=== PATIENT | female | born 1955 | race Caucasian/White ===

== ENCOUNTER 2024-02-23 12:55 | Outpatient (CLI) | payer MEDICARE, OTHER, SELFPAY | END 2024-02-23 12:56 | disposition home or self-care (01) | LOC: AMB 03-14 03:56 | PROVIDERS: Visit Provider Family Medicine | DX: R04.0 Epistaxis (principal) | CPT/HCPCS: A0998 ==

== ENCOUNTER 2025-04-30 12:56 | Emergency (ER) | payer OTHER, SELFPAY ==
--- OUTSIDE RECORDS SUMMARY | 2025-04-30 12:59 | XMS_ITS | Patient Health Record ---
Author Organization [facility] Address [address] [place] [address] Care Team Providers Care Instructor Adjunct Surgical Technician Name Role Phone DR ALVIN Primary Care Provider Kofi SalehMagda maynard Unavailable [phone] Allergies Allergen (clinical drug ingredient) Drug/Non Drug Allergy documented on EMR Reaction Allergy Type Onset Date Status Penicillin Unknown Drug Allergy Active Results Component Value Reference Range Notes Urinalysis, Routine Reviewed date:09/28/2024 06:20:20 PM Interpretation: Performing Lab: Notes/Report: Glucose Neg Bilirubin Moderate Ketones 15 Specific [place] 1.030 Occult Blood Trace-Lysed pH 5.5 Protein 100 Urobilinogen,Semi-Qn 1.0 Nitrite, Urine Pos PUSHPA Trace Urine-Color Brown Appearance Slightly Cloudy Urine C&S (CPT 73041) Reviewed date:09/30/2024 06:00:03 PM Interpretation: Performing Lab:TP, [id number], [id number] Renard Luna MD Notes/Report: 0 CULTURE, URINE, ROUTINE CULTURE, URINE, ROUTINE Micro Number: [id number] Test Status: Final Specimen Source: Urine Specimen Quality: Adequate Result: No Growth Reason For Referral No Information Medications Medication SIG (Take, Route, Frequency, Duration) Notes Start Date End Date Status Benzonatate 100 MG 2 capsule Orally Three times a day; Duration: 7 Not-Taking hydrOXYzine HCl 25 MG Oral; Duration: 30 Days Patient did not supply Active Ciprofloxacin HCl 500 MG TAKE 1 TABLET BY MOUTH EVERY 12 HOURS FOR 10 DAYS Oral; Duration: 10 Days Active metroNIDAZOLE 500 MG Oral; Duration: 10 Days Patient did not supply Active Amoxicillin 875 MG 1 tablet Orally every 12 hrs; Duration: 10 days Not-Taking Atorvastatin Calcium 20 MG 1 tablet Orally Once a day Active Sertraline HCl 50 MG 1 tablet Orally Once a day Active Fluticasone Propionate 50 MCG/ACT 1 spray in each nostril Nasally Once a day; Duration: 30 day(s) Not-Taking Problems Problem Type SNOMED Code ICD Code Onset Dates Problem Status W/U Status Risk Notes Problem Overweight (212820238) Overweight (E66.3) Active confirmed Problem Acute tonsillitis (89819743) Acute tonsillitis due to other specified organisms (J03.80) Active confirmed Problem Hyperlipidemia (12393083) Hyperlipidemia (E78.5) Active confirmed Problem Chronic sinusitis (73509040) Sinusitis, unspecified chronicity, unspecified location (J32.9) Active confirmed Problem Diverticulitis (07629305) Diverticulitis (K57.92) Active confirmed Problem 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) Depression with anxiety (F41.8) Active confirmed Problem Obesity (785802112) Obesity with body mass index greater than 30 (E66.9) Active confirmed Problem Ineffective air exchange (Z78.9) Active confirmed Vital Signs Heart Rate 112 /min 09/28/2024 Temperature 98.1 degrees Fahrenheit 09/28/2024 Respiratory Rate 18 /min 09/28/2024 Height-cm 151.13 cm 09/28/2024 Oximetry 95 % 09/28/2024 Blood pressure diastolic 82 mm Hg 09/28/2024 Weight-kg 67.95 kg 09/28/2024 Height 59.5 in 09/28/2024 Blood pressure systolic 122 mm Hg 09/28/2024 Weight 149.8 lbs 09/28/2024 BMI 29.75 kg/m2 09/28/2024 Encounters Encounter Location Date Provider Diagnosis [facility] [address] [place] [address] 09/28/2024 Magda Lombardi Urinary tract infection, site not specified N39.0 ; Dysuria R30.0 ; Hematuria, unspecified R31.9 and Screening for condition Z13.9 [facility] [address] [place] [address] 09/18/2024 Magda Lombardi Acute sinusitis, unspecified J01.90 ; Acute cough R05.1 ; Tachycardia R00.0 ; Obesity with body mass index greater than 30 E66.9 ; Counseling and coordination of care Z71.89 ; Overweight E66.3 ; Medication management Z79.899 ; Tobacco user Z72.0 ; Encounter for screening for depression Z13.31 and Alcohol use Z78.9 Assessments Encounter Date Diagnosis (ICD Code) Assessment Notes Treatment Notes Treatment Clinical Notes Section Notes 09/18/2024 Acute sinusitis, unspecified (ICD-10 - J01.90) Increase Fluid intake, rest, supportive measures for fever/symptom relief. Tylenol 3-4 times a day as needed, Ibuprofen every 3-4 hours alternating with Tylenol 09/18/2024 Acute cough (ICD-10 - R05.1) Drink lots of water and other fluids. This helps thin the mucus and soothes a dry or sore throat. Honey or lemon juice in hot water or tea may ease a dry cough. Chicken Noodle soup with help with congestion and sore throat Take cough medicine as directed by your doctor. Prop up your head on pillows to help you breathe and ease a dry cough. Try cough drops to soothe a dry or sore throat. 09/28/2024 Urinary tract infection, site not specified (ICD-10 - N39.0) Take meds as prescribed, Increase po fluid intake- lots of water/ cranberry juice is OK also Good hygeine OK to take tylenol/ibuprofe n as needed for pain/discomfort 09/28/2024 Dysuria (ICD-10 - R30.0) OK to take tylenol or ibuprofen as needed for pain Increase po fluid intake Take antibiotic as prescribed Follow up with PCP 09/28/2024 Hematuria, unspecified (ICD-10 - R31.9) Follow up with PMD or clinic for repeat urine test due to blood in your urine Blood in your urine is not normal although it may be due tot he infection it has others causes such as bladder cancer so you must get rechecked 09/18/2024 Tachycardia (ICD-10 - R00.0) Your heart rate was increased in office today. We advise that you continue to monitor your heart rate at home. The best way to accurately assess heart rate is to find the pulse located in your wrist. Once you have located your pulse, put a timer on for 60 seconds, and then record the number of times you feel your pulse within that time frame. A normal heart rate is between 60-100 for adults. We advise you do this at least twice per day and keep a log of your results. Follow up with your PCP and bring in the log you have kept. If you develop any chest pain or shortness of breath, we recommend you seek immediate emergency evaluation at the ER. 09/18/2024 Obesity with body mass index greater than 30 (ICD-10 - E66.9) Spoke with patient briefly regarding their elevated BMI and stressed the importance of diet and exercise. Being overweight can lead to serious health problems, such as high blood pressure, heart disease, type 2 diabetes, and arthritis, or it can make these problems worse. Eating a healthy diet and being more active can help you reach and stay at a healthy weight 09/28/2024 Screening for condition (ICD-10 - Z13.9) 09/18/2024 Counseling and coordination of care (ICD-10 - Z71.89) 09/18/2024 Overweight (ICD-10 - E66.3) 09/18/2024 Medication management (ICD-10 - Z79.899) 09/18/2024 Tobacco user (ICD-10 - Z72.0) 09/18/2024 Encounter for screening for depression (ICD-10 - Z13.31) 09/18/2024 Alcohol use (ICD-10 - Z78.9) 09/18/2024 Other Please arrange a follow up visit with your primary care physician to discuss your conditions as soon as possible. You may return to the clinic if your signs or symptoms persist or worsen. For life threatening emergencies, please call 911 or go to the closest emergency room for detailed medical care. You must understand that we are not a primary care facility and you have received Urgent Care treatment only, and that you may have been released before all of your medical problems were known or treated. You, the patient, are responsible to make arrangements with your primary care physician as instructed. Please arrange for follow up medical care for your condition within one week. You must understand that as an Urgent Care Clinic, we are not responsible for routine healthcare maintenance. Such services are to be provided by your primary care physician, even though you may have been seen multiple times in our facility. If your condition worsens, we recommend that you receive another evaluation at the emergency room immediately or contact your primary care physician to discuss your concerns. The patient's / family / guardian questions, concerns, and treatment plan were discussed in detail and all questions were answered to full satisfaction. The patient / family/ guardian are in agreement with the plan of care. 09/28/2024 Other Please arrange a follow up visit with your primary care physician to discuss your conditions as soon as possible. You may return to the clinic if your signs or symptoms persist or worsen. For life threatening emergencies, please call 911 or go to the closest emergency room for detailed medical care. You must understand that we are not a primary care facility and you have received Urgent Care treatment only, and that you may have been released before all of your medical problems were known or treated. You, the patient, are responsible to make arrangements with your primary care physician as instructed. Please arrange for follow up medical care for your condition within one week. You must understand that as an Urgent Care Clinic, we are not responsible for routine healthcare maintenance. Such services are to be provided by your primary care physician, even though you may have been seen multiple times in our facility. If your condition worsens, we recommend that you receive another evaluation at the emergency room immediately or contact your primary care physician to discuss your concerns. The patient's / family / guardian questions, concerns, and treatment plan were discussed in detail and all questions were answered to full satisfaction. The patient / family/ guardian are in agreement with the plan of care. Plan Of Treatment No Information Insurance Providers Payer Name Payer Address Payer Phone Subscriber Number Group Number Insured Name Patient Relationship to Insured Coverage Start Date Coverage End Date [employer] [address] [address] [place] [address] [id number] HermanTammy Self - patient is the insured 5 Medical (General) History Medical History History ICD Code Hyperlipidemia E78.5 Depression with anxiety F41.8 Diverticulitis K57.92
--- OUTSIDE RECORDS SUMMARY | 2025-04-30 12:59 | XMS_ITS | Clinical Summary ---
[facility] Address [address] [place] [address] Care Team Providers Care Booth Manager Name Role Phone Juan Flaherty MD Primary Care Provider Allergies No known active allergies Medications sertraline (ZOLOFT) 50 mg tablet Take 50 mg total (1 tablet) by mouth every evening. Active rosuvastatin (CRESTOR) 20 mg tablet Take 20 mg total (1 tablet) by mouth every evening. Active Active Problems Problem Noted Date Diagnosed Date Sepsis 10/20/2024 Perforated diverticulum 10/20/2024 Diverticulitis of large inte marcelino with perforation without bleeding 10/20/2024 Sepsis with acute organ dysf unction without septic shock, due to unspecified organism, unspecified organ dysfunction type 10/20/2024 Diverticulitis 10/05/2024 Phlegmon 10/05/2024 Periumbilical hernia 10/05/2024 Intractable pain 10/05/2024 Ventral hernia without obstruction or gangrene 0 10/05/2024 Encounters Date Type Department Care Team Description 03/03/2025 10:05 AM EDT - 03/03/2025 12:05 PM EDT Emergency [facility] EMERGENCY DEPARTMENT [address] [place] [id number] Soft tissue swelling of ankle joint (Primary Dx) Discharge Disposition: Home or Self Care from Last 3 Months Family History Medical History Relation Name Comments Crohn's disease Father Diabetes Mother Hypertension - Blood Pressure Mother Relation Name Status Comments Father Mother Social History Tobacco Use Types Packs/Day Years Used Date Smoking Tobacco: Every Day Cigarettes 0.5 54.7 Started: 1970 Smokeless Tobacco: Never Tobacco Cessation:Ready to Q uit: No Alcohol Use Standard Drinks/Week Comments Yes 3 (1 standard drink = 0.6 oz pure alcohol) 3 DRINKS NIGHTLY/7 days per week Comments No Sex and Gender Information Value Date Recorded Sex Assigned at Not on file Legal Sex Female 1:38 PM EST Gender Identity Not on file Sexual Orientation Not on file Last Filed Vital Signs Vital Sign Reading Time Taken Comments Blood Pressure 157/94 03/03/2025 10:08 AM EDT Pulse 90 03/03/2025 10:08 AM EDT Temperature 36.6 C (97.9 F) 03/03/2025 10:08 AM EDT Respiratory Rate 16 03/03/2025 10:08 AM EDT Oxygen Saturation 96% 03/03/2025 10:08 AM EDT Inhaled Oxygen Concentration - - Weight 74.8 kg (165 lb) 03/03/2025 10:08 AM EDT Height 152.4 cm (5') 03/03/2025 10:08 AM EDT Body Mass Index 32.22 03/03/2025 10:08 AM EDT Plan of Treatment Health Maintenance Due Date Last Done Comments Cologuard 1955 Depression Screening & Follow Up 1956 FIT 1956 FOBT 1956 Flex Sigmoidoscopy 1955 Medicare Annual Wellness (AWV) 1956 TOBACCO CESSATION COUNSELING 1956 IMM SERIES: Varicella Vaccines (1 of 2 - 13+ 2-dose series) 1969 HEPATITIS C SCREENING 1974 Social Drivers of Health Assessment 1974 Weight Management (Adult) 1974 IMM SERIES: Polio Vaccines (2 of 3 - Adult catch-up series) 12/12/1982 11/14/1982 Annual Exam for 40yo+ 1996 Colonoscopy 2006 Colorectal Cancer Screening 2006 IMM SERIES: Zoster (1 of 2) 2006 Lung Cancer Screening 2006 Breast Cancer Screening 02/07/2015 02/07/2014, 02/07 DEXA Scan Screening 2021 02/07/2014 Falls Risk Assessment 2021 Pneumococcal Vaccine 65+ (2 of 2 - PCV) 11/08/2021 11/08/2020 IMM SERIES: DTAP/TDAP/TD/DTP (2 - Td or Tdap) 09/03/2022 09/03/2012, 09/22/2003, 08/16/1998, Additional history exists GLAUCOMA SCREENING 67+ YR 2023 IMM SERIES: SARS-COV2 and COVID-19 vaccines ( season) 2024 10/29/2020, 10/08/2020 Influenza Vaccine (#1) 2025 , 08/24/2019, 06/21/2016, Additional history exists IMM SERIES: MMR Vaccines Completed 11/14/1982 IMM SERIES: Hepatitis A Vaccine Aged Out 09/22/2003, 07/16/2002 No longer eligibl e based on patient's age to complete this topic IMM SERIES: Hepatitis B Vaccine Completed 09/22/2014, 04/21/2014, 12/17/2013 IMM SERIES: HIB Vaccines Aged Out No longer eligible based on patient's age to complete this topic IMM SERIES: HPV Vaccines Aged Out No longer eligible based on patient's age to complete this topic IMM SERIES: Meningococcal ACWY Aged Out No longer eligible based on patient's age to complete this topic IMM SERIES: Meningococcal B Vaccines Aged Out No longer eligible based on patient's age to complete this topic IMM SERIES: Rotavirus Vaccines Aged Out No longer eligible based on patient's age to complete this topic Procedures Procedure Name Priority Date/Time Associated Diagnosis Comments XR FOOT RIGHT COMPLETE STAT 03/03/2025 10:38 AM EDT XR ANKLE RIGHT COMPLETE STAT 03/03/2025 10:38 AM EDT from Last 3 Months Results * XR FOOT RIGHT COMPLETE (03/03/2025 10:38 AM EDT) Anatomical Region Laterality Modality Foot, Ankle Computed Radiogr aphy 03/03/2025 11:2 7 AM EDT Impressions 03/03/2025 11:27 AM EDT IMPRESSION: Diffuse soft tissue swelling. Electronically signed by Renetta Cuenca MD 03/03/2025 11:27 AM Narrative 03/03/2025 11:27 AM EDT PROVIDED HISTORY: 69-year-old with right foot inflammation and pain. EXAM: RIGHT FOOT 3 VIEWS COMPARISONS: No prior studies available. TECHNIQUE: Radiographic images were obtained of the right foot. FINDINGS: No fracture or destructive lesion/process. Joint alignment is intact. Diffuse soft tissue swelling of the foot. Procedure Note Renetta Cuenca MD - 03/03/2025 PROVIDED HISTORY: 69-year-old with right foot inflammation and pain. EXAM: RIGHT FOOT 3 VIEWS COMPARISONS: No prior studies available. TECHNIQUE: Radiographic images were obtained of the right foot. FINDINGS: No fracture or destructive lesion/process. Joint alignment is intact. Diffuse soft tissue swelling of the foot. IMPRESSION: IMPRESSION: Diffuse soft tissue swelling. Electronically signed by Renetta Cuenca MD 03/03/2025 11:27 AM Esperanza Fletcher MORTGAGE PROTECTION SPECIALIST IMG DIAGNOSTIC IMAGING ORD ERABLES Final Result * XR ANKLE RIGHT COMPLETE (03/03/2025 10:38 AM EDT) Anatomical Region Laterality Modality Leg, Ankle, Foot Computed Radiog devonte 03/03/2025 10:4 9 AM EDT Impressions 03/03/2025 10:50 AM EDT IMPRESSION: Mild dorsal soft tissue swelling. No acute bony abnormality identified. Electronically signed by Michael Bender MD 03/03/2025 10:50 AM Narrative 03/03/2025 10:50 AM EDT PROVIDED HISTORY: Right ankle pain. EXAM: ANKLE RIGHT 3 VIEW COMPARISONS: No prior studies are available for comparison. TECHNIQUE: Radiographic images were obtained of the ankle(s). FINDINGS: No fracture or destructive lesion/process. Joint alignment is intact. Lateral view shows a bone spur extending off the anterior superior aspect of the talus. Joint space at the tibiotalar joint appears intact. There is mild dorsal soft tissue swelling identified. Procedure Note Michael Bender MD - 03/03/2025 PROVIDED HISTORY: Right ankle pain. EXAM: ANKLE RIGHT 3 VIEW COMPARISONS: No prior studies are available for comparison. TECHNIQUE: Radiographic images were obtained of the ankle(s). FINDINGS: No fracture or destructive lesion/process. Joint alignment is intact. Lateral view shows a bone spur extending off the anterior superior aspect of the talus. Joint space at the tibiotalar joint appears intact. There is mild dorsal soft tissue swelling identified. IMPRESSION: IMPRESSION: Mild dorsal soft tissue swelling. No acute bony abnormality identified. Electronically signed by Michael Bender MD 03/03/2025 10:50 AM Leena Jimenez MD IMG DIAGNOSTIC IMAGING ORDERA BLES Final Result from Last 3 Months Insurance MEDICARE [employer] Advance Directives For more information, please contact: [phone] * Full Code (Latest Code Status on File) Date Activated Date Inactivated Comments 12/15/2024 1:18 PM 12/15/2024 5:26 PM * Full Code Date Activated Date Inactivated Comments 10/20/2024 11:02 AM 10/23/2024 4:22 PM * Full Code Date Activated Date Inactivated Comments 10/06/2024 7:16 PM 10/08/2024 3:36 PM Care Teams Booth Manager Relationship Specialty Start Date End Date uJan Flaherty MD [address] [facility] [address] [place] [address] PCP - General Internal Medicine 10/06/24
--- OUTSIDE RECORDS SUMMARY | 2025-04-30 12:59 | XMS_ITS | Patient Health Record ---
Author Organization [facility] Address [address] [place] [address] Care Team Providers Care Floor Trader Name Role Phone Krystina FAM, Juan Primary Care Provider Durga Rainey Unavailable [phone] Allergies Allergen (clinical drug ingredient) Drug/Non Drug Allergy documented on EMR Reaction Allergy Type Onset Date Status Penicillin Unknown Drug Allergy Active Reason For Referral No Information Medications Medication SIG (Take, Route, Frequency, Duration) Notes Start Date End Date Status Vitamin D3 50 MCG (1999) 1 capsule Or ally Once a day; Duration: 30 day(s) Active Rosuvastatin Calcium 20 MG 1 tablet Oral ly Once a day; Duration: 90 days Active Sertraline HCl 50 MG 1 tablet Orally Onc e a day; Duration: 30 day(s) Active Social History Tobacco Use: Social History Observation Description Date Details (start date - stop date) Current Smoker NA - NA Tobacco Use/Smoking Question Answer Notes Are you a: current smoker Problems Problem Type SNOMED Code ICD Code Onset Dates Problem Status W/U Status Risk Notes Problem Tobacco user (550900498) Nicotine dependence, cigarettes, uncomplicated (F17.210) Active confirmed Problem Obesity (734342358) Obesity, unspecified (E66.9) Active confirmed Problem Hyperlipidemia (40185305) Other hyperlipidemia (E78.49) Active confirmed Plan Of Treatment Pending Test Test Name Order Date Echocardiogram 10/05/2022 Nuclear Stress Test Exercise 05/04/2022 Insurance Providers Payer Name Payer Address Payer Phone Subscriber Number Group Number Insured Name Patient Relationship to Insured Coverage Start Date Coverage End Date MEDICARE [place] [address] [address] [place] [address] [id number] DINORAH WARREN Self - patient is the insured FOR LIFE [address] [place] [address] need ID BRIANA DINORAH Self - patient is the insured Medical (General) History Medical History History ICD Code Other hyperlipidemia E78.49 Nicotine dependence, cigarettes, uncompl icated F17.210 Obesity, unspecified E66.9 Surgical History Surgery Date(Month/Year) LT ANKLE REPAIR TRAUMA CYST REMOVED LT BREAST BENIGN
[2025-04-30 13:02] VITALS: BP 139/81; PULSE 121; RESP 18; TEMP 36.7; O2SAT 97; BMI 26.6
--- NOTE | 2025-04-30 14:38 | ED.GENADULT ---
HPI - General Adult General Date Seen: 04/30/25 Chief complaint: Abdominal Pain Stated complaint: Diverticulitis concerns Time Seen by Provider: 04/30/25 14:30 History of Present Illness HPI narrative: 69-year-old female who has a history of diverticulitis with 2 previous episodes with perforation) presenting to the ER today for left lower quadrant abdominal pain. Says her current episode has been going on for about 3 days. She is also having some chills and subjective fevers. She normally lives near [place], [place]. She gets her medical care there. She is here in [place] visiting her daughter and granddaughter. Patient reports that she has 2 previous episodes of perforated diverticulitis. One occurred almost 10 years ago in 2017 and was managed with antibiotics but no operation. Her most recent bout of diverticulitis occurred about 3 months ago, this your. She had had some left lower quadrant abdominal pain. She had been put on some oral antibiotics by her PCP but was not getting better. She developed there is this is a fused abdominal pain. She went to an ER in [facility] ([facility]] apparently had [address] scan. First, she had a strangulated umbilical hernia. This was managed with an operation and her hernia was reduced. It was not repaired with mesh because of coincident perforation of her diverticulitis. The 2nd finding is that she had perforated diverticulitis. This was managed with 3 days of IV antibiotics. Does not sound like she had surgery or IR drainage. She was discharged home on a course of antibiotics and got better. She has been feeling fine in her usual state of health up until about 3 days ago when she started developing a recurrent bloating sensation in the left lower quadrant of her abdomen. Along with that she has had increased frequency and soft stools but no bloody stools or and no liquid diarrhea. She is not nauseous or vomiting. No fever but she has had some chills. She feels like her pain is probably reminiscent of early diverticulitis. She wanted to come here to the ER to get a CT scan to make sure it was not perfect (but she thinks it is probably not) and to get on antibiotics before perforates Related Data Home Medications ?Medication ?Instructions ?Recorded ?Confirmed rosuvastatin 20 mg tablet 20 mg PO QPM 04/30/25 04/30/25 sertraline 50 mg tablet 50 mg PO DAILY 04/30/25 04/30/25 Previous Rx's ?Medication ?Instructions ?Recorded ciprofloxacin HCl 500 mg tablet 500 mg PO BID #14 tabs 04/30/25 metronidazole 500 mg tablet 500 mg PO TID #21 tabs 04/30/25 Allergies Allergy/AdvReac Type Severity Reaction Status Date / Time Penicillins Allergy Vomiting Verified 04/30/25 15:39 [facility] Social History Non-prescribed substance use: denies use Exam Narrative: Exam Narrative: Constitutional: Appears well-developed and well-nourished. Alert. Conversant. Non toxic. HENT: Head: Atraumatic. Nose: Nose normal. Mouth/Throat: Oral mucosa is clear and moist. no trismus. Eyes: Conjunctivae normal. EOM normal. Pupils equal, round, and reactive to light. No scleral icterus. Neck: Normal range of motion. Neck supple. No tracheal deviation present. Cardiovascular: Normal rate, regular rhythm. No gallop. No friction rub. No murmur heard. Pulmonary/Chest: Effort normal. No stridor. No respiratory distress. No wheezes. No rales. No rhonchi . No tenderness. Abdominal: Soft. Bowel sounds normal. No distension. Full she does have a nontender soft supraumbilical lump consistent with a non incarcerated umbilical hernia. Patient reports that it was repaired couple of months ago but did not have the mesh implanted. Overlying incision looks very good. Left lower quadrant> suprapubic tenderness. No rebound. No guarding. Musculoskeletal: RUE: Normal range of motion. No tenderness. No deformity LUE: Normal range of motion. No tenderness. No deformity RLE: Normal range of motion. No edema. No tenderness. No deformity LLE: Normal range of motion. No edema. No tenderness. No deformity Neurological: Alert and oriented to person, place, and time. Normal strength. CN II-VII intact. No sensory deficit. GCS eye subscore is 4. GCS verbal subscore is 5. GCS motor subscore is 6. Normal coordination Skin: Skin is warm and dry. No rash noted. No pallor. Normal capillary refill. Psychiatric: Normal mood. Normal affect. Const: Vital Signs, click to edit/add: Vital Signs - 24 hr 04/30/25 13:02 04/30/25 16:02 Temperature 98.0 F Pulse Rate [Pulse Oximeter] 121 H 92 Respiratory Rate 18 18 Blood Pressure [Ri ght Forearm] 139/81 Pulse Oximetry 97 94 Oxygen Delivery Me thod Room Air Course Vital Signs Vital signs: Initial Vital Signs Temperature 98.0 F 04/30/25 13:02 Temperature Source Temporal Artery Scan 04/30/25 13:02 Pulse Rate 121 H 04/30/25 13:02 Respiratory Rate 18 04/30/25 13:02 Blood Pressure 139/81 04/30/25 13:02 Blood Pressure Mean 100 04/30/25 13:02 Blood Pressure Position Sitting 04/30/25 13:02 Pulse Oximetry 97 04/30/25 13:02 Oxygen Delivery Method Room Air 04/30/25 13:02 Vital Signs Temperature 98.0 F 04/30/25 13:02 Pulse Rate 121 H 04/30/25 13:02 Respiratory Rate 18 04/30/25 13:02 Blood Pressure 139/81 04/30/25 13:02 Pulse Oximetry 97 04/30/25 13:02 Oxygen Delivery Method Room Air 04/30/25 13:02 Temperature 98.0 F 04/30/25 13:02 Pulse Rate 92 04/30/25 16:02 Respiratory Rate 18 04/30/25 16:02 Blood Pressure 139/81 04/30/25 13:02 Pulse Oximetry 94 04/30/25 16:02 Oxygen Delivery Method Room Air 04/30/25 13:02 Medical Decision Making MDM Narrative Medical decision making narrative: Presented to the Emergency Department with left lower quadrant and left-sided abdominal pain for the past 3 days. She has a history of similar pains and has had a few episodes of diverticulitis in the past and actually has had 2 previous perforations. She feels like her pain is not severe enough to indicate an active perforation. She came here to the ER today because she is visiting from [place] and does not have primary care here in [place].. The differential diagnosis of abdominal pain includes: Appendicitis, Bowel Obstruction, Ulcer, Ischemia, Cholecystitis, Diverticulitis, perforation, Pancreatitis, UTI, kidney stone, Enteritis/Colitis, amongst many other etiologies. Laboratory testing does not reveal a cause for the patient's pain. CT scan shows wall thickening of her colon suggestive of chronic diverticulitis. However based on the patient's symptoms of 3 days of her recurrent pain after a couple of months of being pain free, I suspect this probably acute. No evidence for any perforation, obstruction, abscess, or surgical complication. Given the patient's age and recurrences , he will put the patient on antibiotics-Cipro and Flagyl. She was initially tachycardic but heart rate improved while here in the ER. Laboratory workup shows a normal white count, normal hemoglobin. Normal kidney function. Borderline low potassium at 3.5. Urinalysis showing no sign of infection but is contaminated. Incidentally she does have a palpable soft supra umbilical mass which is consistent with a ventral or umbilical hernia. This is demonstrated on CT imaging and contains fat. No evidence for any incarceration or strangulation or associated bowel obstruction. She will follow-up with her surgeons in [place] when she gets home. No life threatening cause or need for emergent surgery or hospital admission is detected today. The patient was advised that if symptoms do not completely resolve within another 12-24 hours re-evaluation with primary care or return to the ED is indicated. The patient also understands that if they worsen, they should return to the ER right away. I discussed the uncertainty about the diagnosis and answered the patient's questions. Abdominal pain return precautions discussed. Lab Data Labs: Lab Results 04/30/25 04/30/25 04/30/25 Range/Units 14:55 15:12 15:23 WBC 7.17 (4.50-11.00) K/uL RBC 6.03 H (4.00-5.20) m/uL Hgb 15.7 (12.0-16.0) gm/dL Hct 50.1 (33.0-51.0) % MCV 83 (80-100) fL MCH 26 (26-34) pg MCHC 31 L (32-36) gm/dL RDW Coeff of Gina 14.9 (11.5-15.5) % Plt Count 209 (140-440) K/uL Neut % (Auto) 68.5 (42.0-72.0) % Lymph % (Auto) 21.1 (20-44) % Dale % (Auto) 8.6 (0.0-11.0) % Eos % (Auto) 1.4 (0.0-7.0) % Baso % (Auto) 0.3 (0.0-3.0) % Neut # (Auto) 4.91 (1.7-7.0) K/uL Lymph # (Auto) 1.51 (0.90-2.90) K/uL Dale # (Auto) 0.60 (0.00-0.90) K/UL Eos # (Auto) 0.10 (0.00-0.50) K/uL Baso # (Auto) 0.02 (0.00-0.30) K/uL Abs Immat Gran (auto) 0.01 (0.00-0.30) K/uL Imm/Tot Granulo (auto) 0.1 % Sodium 140 (135-149) mmol/L Potassium 3.5 L (3.6-5.1) mmol/L Chloride 107 (96-114) mmol/L Carbon Dioxide 28 (20-32) mmol/L Anion Gap 5 L (7-15) mEq/L BUN 20 (7-30) mg/dL Creatinine 0.7 (0.5-1.5) mg/dL Estimated Creat Clear 48.45 Estimated GFR 94 ml/min Glucose 95 (60-115) mg/dL Lactate 0.9 (0.5-1.9) mmol/L Calcium 9.6 (8.4-10.6) mg/dL Urine Color Yellow (Yellow) Urine Appearance Clear (Clear) Urine pH 5.5 (5.0-8.5) Ur Specific [place] >= 1.030 (1.000-1.030) Urine Protein 2+ A (Negative) Urine Glucose (UA) Negative (Negative) Urine Ketones 2+ A (Negative) Urine Blood 1+ A (Negative) Urine Nitrite Negative (Negative) Urine Bilirubin 2+ A (Negative) Urine Urobilinogen 1.0 (0.2-1.0) Ur Leukocyte Esterase Negative (Negative) Urine RBC 0-2 (0-2) Urine WBC 2-5 (0-5) Ur Squamous Epith Cells Moderate A (None-Few) Urine Bacteria Moderate A (None) Fine Granular Casts Few A (None) Urine Mucus Few A (None) POC Creatinine 0.7 (0.6-1.3) mg/dl Imaging Data CT scan - abdomen: Attestation: I have reviewed the pertinent imaging results. Radiologist's impression: IMPRESSION: 1. Generalized wall thickening amongst multiple diverticula in the sigmoid colon could indicate chronic diverticulitis. No signs of acute inflammation. 2. No other specific finding to explain left-sided abdomen pain. Discharge Plan Discharge Clinical Impression: Diverticulitis, Hernia, umbilical Patient Disposition: Home, Self-Care Condition: Stable Instructions: Diverticulitis (DC), Diverticulitis Diet (ED) Additional Instructions: As we discussed, your CT scan shows signs of inflammation of your colon suggestive for diverticulitis. We do not see any sign of perforation today. We are going to start you on antibiotics (ciprofloxacin and metronidazole ) for 7 days. We expect that your symptoms should get better over the next 24-72 hours. Please return to the ER immediately if you have worsening pain, fever, nausea vomiting, bloody stools, weakness, or any concerns. If you are not dramatically improved within 72 hours, please recheck with your regular doctor or come back to the ER. Prescriptions: New ciprofloxacin HCl 500 mg tablet 500 mg PO BID Qty: 14 0RF metronidazole 500 mg tablet 500 mg PO TID Qty: 21 0RF No Action sertraline 50 mg tablet 50 mg PO DAILY rosuvastatin 20 mg tablet 20 mg PO QPM Follow Up/Referrals: Provider,Not a Local [Primary Care Provider, Family Practice] Stand Alone Forms: [facility] Info Instructions
--- NOTE | 2025-04-30 14:39 | CRLHL7_ITS ---
For Patients: As a result of the Century Cures Act, medical imaging exams and procedure reports are released immediately into your electronic medical record. You may view this report before your referring provider. If you have questions, please contact your health care provider. INDICATION: Left lower quadrant abdominal pain. TECHNIQUE: CT abdomen and pelvis acquired with 79 cc Isovue 370 IV contrast. COMPARISON: None. FINDINGS: Lower chest: Unremarkable. Liver: Fatty infiltration. No focal lesion. Gallbladder and bile ducts: Gallbladder absent. No biliary dilatation. Pancreas: Unremarkable. No mass or inflammation. Spleen: Unremarkable. Normal in size. No masses. Adrenal glands: Unremarkable. No nodules. Kidneys: Unremarkable except for a few small bilateral cysts. GI tract: Generalized wall thickening amongst multiple diverticula in the sigmoid colon. Remainder of the GI tract is unremarkable. Normal appendix. Vasculature: Abdominal aorta is normal in caliber. Mesenteric arteries are patent. Lymph nodes: No lymphadenopathy. Peritoneum/Abdominal Wall: [id number] supraumbilical midline fat containing ventral hernia. No fluid collections and no free air. Pelvis: Unremarkable. Bones: Wedge compression deformity of the T10 vertebral body with a complex Schmorl`s node suspected in the inferior endplate. IMPRESSION: 1. Generalized wall thickening amongst multiple diverticula in the sigmoid colon could indicate chronic diverticulitis. No signs of acute inflammation. 2. No other specific finding to explain left-sided abdomen pain. Please note that all CT scans at this facility use dose modulation, iterative reconstruction, and/or weight-based dosing when appropriate to reduce radiation dose to as low as reasonably achievable. Dictated by Trell Arce MD @ 04/30/2025 4:29:41 PM (Electronically Signed)
[2025-04-30 15:07] LABS: Lactate* 0.9 mmol/L (0.5-1.9)
[2025-04-30 15:14] LABS: Creatinine, Point-of-Care* 0.7 mg/dl (0.6-1.3)
[2025-04-30 15:15] LABS: Hematocrit* 50.1 % (33.0-51.0); Hemoglobin* 15.7 gm/dL (12.0-16.0); Immature Granulocytes Abs Auto 0.01 K/uL (0.00-0.30); Immature Granulocytes Pct Auto 0.1 %; Lymphocytes Absolute Auto 1.51 K/uL (0.90-2.90); Mean Corpuscular HGB Conc 31 gm/dL (32-36); Mean Corpuscular Hemoglobin 26 pg (26-34); Mean Corpuscular Volume 83 fL (80-100); RDW Coefficient of Variation % 14.9 % (11.5-15.5); Red Blood Count* 6.03 m/uL (4.00-5.20); White Blood Count* 7.17 K/uL (4.50-11.00)
[2025-04-30 15:20] LABS: Slide Review Reflex No
[2025-04-30 15:34] LABS: Chloride* 107 mmol/L (96-114); Potassium* 3.5 mmol/L (3.6-5.1); Sodium* 140 mmol/L (135-149)
[2025-04-30 15:35] LABS: Appearance Urine Clear (Clear)
[2025-04-30 15:37] LABS: Anion Gap 5 mEq/L (7-15); Blood Urea Nitrogen* 20 mg/dL (7-30); Calcium* 9.6 mg/dL (8.4-10.6); Carbon Dioxide* 28 mmol/L (20-32); Creatinine* 0.7 mg/dL (0.5-1.5); Est. Creatinine Clearance* 48.45; Estimated Glomerular Filt Rate 94 ml/min; Glucose* 95 mg/dL (60-115)
[2025-04-30 16:02] VITALS: PULSE 92; RESP 18; O2SAT 94
== END 2025-04-30 17:09 | disposition home or self-care (01) ==
PROVIDERS: Emergency Provider Emergency Medicine
DX: K57.32 Diverticulitis of large intestine without perforation or abscess without bleeding (principal); K42.9 Umbilical hernia without obstruction or gangrene
CPT/HCPCS: 36415; 74177; 80048; 81001; 82565; 83605; 85025; 87086; 99283; 99284; Q9967